=== PATIENT | female | born 2005 | race Caucasian/White ===

== ENCOUNTER 2024-02-12 19:59 | Emergency (ER) | payer SELFPAY ==
[~2024-02-12] VITALS: Ht 165.1 cm; Wt 68.0 kg
[2024-02-12 20:01] VITALS: O2SAT 100
[2024-02-12 20:03] VITALS: BP 136/49; PULSE 100; RESP 16; TEMP 98.7; O2SAT 100
== END 2024-02-12 21:00 | disposition left against medical advice (07) ==
LOC: ER 19:59
DX: R10.9 Unspecified abdominal pain (principal); Z53.21 Procedure and treatment not carried out due to patient leaving prior to being seen by health care provider
CPT/HCPCS: 99281